=== PATIENT | male | born 1970 | race Caucasian/White ===

== ENCOUNTER 2023-07-13 01:44 | Inpatient (IN) | payer BC, MEDICARE ==
--- NOTE | 2023-07-13 02:06 | ED ---
General Adult HPI - General Chief complaint: Shortness of Breath Stated complaint: [place] Time Seen by Provider: 07/13/23 01:45 Source: patient, EMS, RN notes reviewed, old records reviewed Mode of arrival: EMS Limitations: no limitations - History of Present Illness Initial comments: 53-year-old male presenting with dyspnea. Patient was transported by pa ramedics, with chief complaint of cough and dyspnea. Patient was noted to be hypoxic at 80% on room air. He was given albuterol and Atrovent during transport with improvement in symptoms. He is a current smoker. He did report some left-sided chest discomfort which is improved at the time my evaluation. - Related Data Allergies Allergy/AdvReac Type Severity Reaction Status Date / Time No Known Allergies Allergy Verified 07/13/23 01:46 Review of Systems ROS Statement: Those systems with pertinent positive or pertinent negative responses have been documented in the HPI. ROS Other: All systems not noted in ROS Statement are negative. Past Medical History Past Medical History: COPD History of Any Multi-Drug Resistant Organisms: None Reported Past Surgical History: Heart Catheterization With Stent, Joint Replacement Additional Past Surgical History / Comment(s): bilateral hips Past Psychological History: Anxiety, Bipolar, Depression, PTSD Smoking Status: Current every day smoker Past Alcohol Use History: None Reported Past Drug Use History: None Reported General Exam Limitations: no limitations General appearance: alert, in distress Head exam: Present: atraumatic, normocephalic Eye exam: Present: normal appearance, PERRL Respiratory exam: Present: respiratory distress, wheezes, accessory muscle use, decreased breath sounds, prolonged expiratory Cardiovascular Exam: Present: regular rate, normal rhythm GI/Abdominal exam: Present: soft. Absent: distended, tenderness, guarding Extremities exam: Present: normal inspection, normal capillary refill. Absent: calf tenderness Neurological exam: Present: alert, oriented X3 Psychiatric exam: Present: normal affect, normal mood Skin exam: Present: warm, dry, intact Course Vital Signs 07/13/23 07/13/23 07/13/23 01:47 01:55 02:14 Temperature 98.2 F Pulse Rate 75 84 74 Respiratory 20 20 Rate Blood Pressure 134/89 126/88 O2 Sat by Pulse 98 98 Oximetry Fraction of 50 Inspired Oxygen (FIO2) 07/13/23 07/13/23 07/13/23 02:17 02:35 03:32 Temperature Pulse Rate 76 65 Respiratory 12 16 Rate Blood Pressure 126/68 O2 Sat by Pulse 98 Oximetry Fraction of Inspired Oxygen (FIO2) Medical Decision Making - Medical Decision Making Was pt. sent in by a medical professional or institution (KENNY Mendez, TOBACCO PACKING MACHINE OPERATOR, urgent care, hospital, or retirement...) When possible be specific @ -No Did you speak to anyone other than the patient for history (EMS, parent, family, police, friend...)? What history was obtained from this source @ -No Did you review nursing and triage notes (agree or disagree)? Why? @ -I reviewed and agree with nursing and triage notes Were old charts reviewed (outside hosp., previous admission, EMS record, old EKG, old radiological studies, urgent care reports/EKG's, retirement records)? Report findings @ -No old charts were reviewed Differential Dyspnea: Coronary syndrome, arrhythmia, tamponade, asthma, COPD, pulmonary embolism, pneumonia, pneumothorax, pulmonary effusion, anaphylaxis, diabetic ketoacidosis, flailed chest, pulmonary contusion, diaphragmatic rupture, anemia, neuromuscular, this is not meant to be an all-inclusive list. EKG interpreted by me (3pts min.). @Sinus rhythm rate of 80, MT interval 164, QRS duration 90, QTc [address] segment elevation. X-rays interpreted by me (1pt min.). @ -Chest x-ray negative for pneumothorax or focal pneumonia, no acute findings] CT interpreted by me (1pt min.). @ -None done U/S interpreted by me (1pt. min.). @ -None done What testing was considered but not performed or refused? (CT, X-rays, U/S, labs)? Why? @ -None What meds were considered but not given or refused? Why? @ -None Did you discuss the management of the patient with other professionals (professionals i.e. KENNY Mendez, TOBACCO PACKING MACHINE OPERATOR, lab, RT, psych nurse, social worker aide, private advisor, teacher, airplane first officer, business case analyst)? Give summary @ -No Was smoking cessation discussed for >3mins.? @ -No Was critical care preformed (if so, how long)? @ -Yes, 35 minutes Were there social determinants of health that impacted care today? How? (Homelessness, low income, unemployed, alcoholism, drug addiction, transportation, low edu. Level, literacy, decrease access to med. care, intermediate, rehab)? @ -No Was there de-escalation of care discussed even if they declined (Discuss DNR or withdrawal of care, Hospice)? DNR status @ -No What co-morbidities impacted this encounter? (DM, HTN, Smoking, COPD, CAD, Cancer, CVA, ARF, Chemo, Hep., AIDS, mental health diagnosis, sleep apnea, morbid obesity)? @COPD Was patient admitted / discharged? Hospital course, mention meds given and route, prescriptions, significant lab abnormalities, going to OR and other pertinent info. @ -[53-year-old male with history of COPD presenting with increased cough and dyspnea. Patient is hypoxic requiring BiPAP for respiratory support. Given albuterol, Atrovent, steroids, started on IV antibiotics for COPD exacerbation. Laboratory testing reveals leukocytosis but is otherwise unremarkable. Case is discussed with Dr. Brown who will admit. Pulmonology placed on consult. Undiagnosed new problem with uncertain prognosis? @ -No Drug Therapy requiring intensive monitoring for toxicity (Heparin, Nitro, Insulin, Cardizem)? @ -No Were any procedures done? @ -No Diagnosis/symptom? @ -[COPD exacerbation, respiratory failure Acute, or Chronic, or Acute on Chronic? @ -Acute Uncomplicated (without systemic symptoms) or Complicated (systemic symptoms)? @ -Default Side effects of treatment? @ -No Exacerbation, Progression, or Severe Exacerbation? @ -No Poses a threat to life or bodily function? How? (Chest pain, USA, PA, pneumonia, PE, COPD, DKA, ARF, appy, cholecystitis, CVA, Diverticulitis, Homicidal, Suicidal, threat to staff... and all critical care pts) @ -[Yes, respiratory failure - Lab Data Result diagrams: 07/13/23 01:54 07/13/23 01:54 Lab Results 07/13/23 07/13/23 07/13/23 Range/Units 01:54 01:54 01:54 WBC 14.5 H (3.8-10.6) k/uL RBC 4.15 L (4.30-5.90) m/uL Hgb 13.2 (13.0-17.5) gm/dL Hct 42.4 (39.0-53.0) % MCV 102.3 H (80.0-100.0) fL MCH 31.9 (25.0-35.0) pg MCHC 31.2 (31.0-37.0) g/dL RDW 14.2 (11.5-15.5) % Plt Count 247 (150-450) k/uL MPV 7.7 Neutrophils % 81 % Lymphocytes % 11 % Monocytes % 5 % Eosinophils % 2 % Basophils % 0 % Neutrophils # 11.7 H (1.3-7.7) k/uL Lymphocytes # 1.6 (1.0-4.8) k/uL Monocytes # 0.7 (0-1.0) k/uL Eosinophils # 0.3 (0-0.7) k/uL Basophils # 0.1 (0-0.2) k/uL Macrocytosis Slight PT 10.8 (10.0-12.5) sec INR 1.0 (<1.2) APTT 23.6 (22.0-30.0) sec Sodium 138 (137-145) mmol/L Potassium 4.0 (3.5-5.1) mmol/L Chloride 99 (98-107) mmol/L Carbon Dioxide 36 H (22-30) mmol/L Anion Gap 3 mmol/L BUN 20 (9-20) mg/dL Creatinine 0.90 (0.66-1.25) mg/dL Est GFR (CKD-EPI)AfAm >90 (>60 ml/min/1.73 sqM) Est GFR (CKD-EPI)NonAf >90 (>60 ml/min/1.73 sqM) Glucose 124 H (74-99) mg/dL Plasma Lactic Acid Addy (0.7-2.0) mmol/L Calcium 8.8 (8.4-10.2) mg/dL Total Bilirubin 0.5 (0.2-1.3) mg/dL AST 21 (17-59) U/L ALT 16 (4-49) U/L Alkaline Phosphatase 60 (38-126) U/L Troponin I (0.000-0.034) ng/mL NT-Pro-B Natriuret Pep 363 pg/mL Total Protein 6.3 (6.3-8.2) g/dL Albumin 3.9 (3.5-5.0) g/dL 07/13/23 07/13/23 Range/Units 01:54 01:54 WBC (3.8-10.6) k/uL RBC (4.30-5.90) m/uL Hgb (13.0-17.5) gm/dL Hct (39.0-53.0) % MCV (80.0-100.0) fL MCH (25.0-35.0) pg MCHC (31.0-37.0) g/dL RDW (11.5-15.5) % Plt Count (150-450) k/uL MPV Neutrophils % % Lymphocytes % % Monocytes % % Eosinophils % % Basophils % % Neutrophils # (1.3-7.7) k/uL Lymphocytes # (1.0-4.8) k/uL Monocytes # (0-1.0) k/uL Eosinophils # (0-0.7) k/uL Basophils # (0-0.2) k/uL Macrocytosis PT (10.0-12.5) sec INR (<1.2) APTT (22.0-30.0) sec Sodium (137-145) mmol/L Potassium (3.5-5.1) mmol/L Chloride (98-107) mmol/L Carbon Dioxide (22-30) mmol/L Anion Gap mmol/L BUN (9-20) mg/dL Creatinine (0.66-1.25) mg/dL Est GFR (CKD-EPI)AfAm (>60 ml/min/1.73 sqM) Est GFR (CKD-EPI)NonAf (>60 ml/min/1.73 sqM) Glucose (74-99) mg/dL Plasma Lactic Acid Addy 1.1 (0.7-2.0) mmol/L Calcium (8.4-10.2) mg/dL Total Bilirubin (0.2-1.3) mg/dL AST (17-59) U/L ALT (4-49) U/L Alkaline Phosphatase (38-126) U/L Troponin I <0.012 (0.000-0.034) ng/mL NT-Pro-B Natriuret Pep pg/mL Total Protein (6.3-8.2) g/dL Albumin (3.5-5.0) g/dL Critical Care Time Critical Care Time: Yes Total Critical Care Time: 35 Disposition Clinical Impression: Acute exacerbation of chronic obstructive pulmonary disease Disposition: ADMITTED IP TO THIS HOSP Condition: Serious Is patient prescribed a controlled substance at d/c from ED?: No Referrals: None,Stated [Primary Care Provider] - 1-2 days Time of Disposition: 03:42
[2023-07-13] MEDS: ALBUTEROL NEBULIZED 2.5 MG/3 ML INHALATION STA (02:13)
[2023-07-13 02:14] LABS: Basophils # (A) 0.1 k/uL (0-0.2); Basophils % (A) 0 %; Eosinophils # (A) 0.3 k/uL (0-0.7); Eosinophils % (A) 2 %; HCT 42.4 % (39.0-53.0); HGB 13.2 gm/dL (13.0-17.5); Lymphocytes # (A) 1.6 k/uL (1.0-4.8); Lymphocytes % (A) 11 %; MCH 31.9 pg (25.0-35.0); MCHC 31.2 g/dL (31.0-37.0); MCV 102.3 fL (80.0-100.0); Macrocytosis Slight; Mean Platelet Volume 7.7; Monocytes # (A) 0.7 k/uL (0-1.0); Monocytes % (A) 5 %; Neutrophils # (A) 11.7 k/uL (1.3-7.7); Neutrophils % (A) 81 %; Platelet Count 247 k/uL (150-450); RBC 4.15 m/uL (4.30-5.90); RDW 14.2 % (11.5-15.5); WBC 14.5 k/uL (3.8-10.6)
[2023-07-13] MEDS: IPRATROPIUM 0.5 MG/2.5 ML NEBU INHALATION STA (02:14)
[2023-07-13] MEDS: methylPREDNISolone SOD SUCCI 125 MG/2 ML VIAL IV STA (02:20)
[2023-07-13 02:26] LABS: Partial Thromboplastin Time 23.6 sec (22.0-30.0); Prothrombin Time 10.8 sec (10.0-12.5)
[2023-07-13 02:27] LABS: ALT 16 U/L (4-49); AST 21 U/L (17-59); African American GFR (CKD) >90 (>60 ml/min/1.73 sqM); Albumin 3.9 g/dL (3.5-5.0); Alkaline Phosphatase 60 U/L (38-126); Anion Gap 3 mmol/L; Blood Urea Nitrogen 20 mg/dL (9-20); Calcium 8.8 mg/dL (8.4-10.2); Carbon Dioxide 36 mmol/L (22-30); Chloride 99 mmol/L (98-107); Glucose 124 mg/dL (74-99); Non-African American GFR(CKD) >90 (>60 ml/min/1.73 sqM); Sodium 138 mmol/L (137-145); Total Bilirubin 0.5 mg/dL (0.2-1.3); Total Protein 6.3 g/dL (6.3-8.2)
[2023-07-13 02:36] LABS: NT-Pro-B-Type Natriuretic Pept 363 pg/mL
[2023-07-13] MEDS ORDERED: NALOXONE 0.4 MG/ML 1 ML VIAL IVP PRN (03:40)
[2023-07-13] MEDS ORDERED: IPRATROPIUM-ALBUTEROL 3 ML NEB INHALATION PRN (03:40)
[2023-07-13] MEDS: AZITHROMYCIN 500 MG in SODIUM CHLORIDE 0.9% 250 ML IVPB STA (03:50)
--- NOTE | 2023-07-13 03:54 | P.HPIM ---
History of Present Illness H&P Date: 07/13/23 Patient is a 53-year-old male with a PMH of CAD status post CABG and multiple stents and COPD (not on inhalers), who presents to the emergency room with complaints of shortness of breath and cough. Patient notes that he was diagnosed with COPD several years ago but refused to use inhalers. He was seen by his applications specialist several weeks ago who advised him to get a pulmonary appointment. The patient has however been unable to get an appointment as they recently moved into the area. He notes that over the past 3 days he has been experiencing a cough productive of whitish clear phlegm along with shortness of breath. He does report some pleuritic left-sided chest discomfort. Denies lower extremity swelling or pain. Denies fever, chills, nausea, vomiting, abdominal pain, diarrhea. The patient was brought in via EMS and was initially noted to be 80% SpO2 on room air which improved to 95% on nonrebreather mask. EKG in the emergency room revealed sinus rhythm at 80 bpm with T wave inversion in lead V2 with no additional ST/T wave changes noted as reviewed by me. Chest x-ray as reviewed with the ED provider was unremarkable. Laboratory evaluation was remarkable for leukocytosis of 14.5, MCV 102.3, CO2 36, lactic acid 1.1, troponin less than 0.012, and proBNP 363. ED documentation reviewed and case discussed with ED provider. Review of systems: Pertinent positives and negatives as discussed in HPI, a complete review of systems was performed and all other systems are negative. Physical examination: Vital signs reviewed General: on Bipap, non toxic, no distress, appears at stated age, morbidly obese Derm: no unusual rashes/lesions, warm Head: atraumatic, normocephalic, symmetric Eyes: EOMI, no lid lag, anicteric sclera, pupils equal round reactive to light ENT: Nose and ears atraumatic Neck: No cervical lymphadenopathy, trachea midline, supple Mouth: no lip lesion, mucus membranes moist Cardiovascular: S1S2 reg, no murmur, positive dorsalis pedis pulse bilateral, no edema Lungs: Poor air entry bilaterally with expiratory and inspiratory wheezing, no accessory muscle use Abdominal: soft, nontender to palpation, no guarding Ext: muscle strength 5 out of 5 in all 4 extremities grossly, no gross muscle atrophy, no contractures, Neuro: CN II-XI grossly intact, no gross focal neuro deficits Psych: Alert, oriented, appropriate affect Assessment: Acute COPD exacerbation with acute hypoxic respiratory failure on BiPAP Macrocytosis Chronic conditions: CAD status post CABG and stents Imaging: EKG in the emergency room revealed sinus rhythm at 80 bpm with T wave inversion in lead V2 with no additional ST/T wave changes noted as reviewed by me. Chest x-ray as reviewed with the ED provider was unremarkable. Data Review: Laboratory evaluation was remarkable for leukocytosis of 14.5, MCV 102.3, CO2 36, lactic acid 1.1, troponin less than 0.012, and proBNP 363. The patient was brought in via EMS and was initially noted to be 80% SpO2 on room air which improved to 95% on nonrebreather mask. Plan: Continue with DuoNebs [id number] and as needed Continue Solu-Medrol 60 mg IV every 6 hour Check procalcitonin levels Continue azithromycin and ceftriaxone for now Follow-up blood cultures Pulmonary consulted Continue with BiPAP for now Resume home medications once reconciled Check b12 and folate levels Check ABG DVT prophylaxis: Lovenox subcu The patient is admitted with an anticipated greater than 2 midnight stay for evaluation of acute COPD exacerbation CODE STATUS: Full Code Discussed with: Patient Anticipated discharge place: Home Past Medical History Past Medical History: COPD History of Any Multi-Drug Resistant Organisms: None Reported Past Surgical History: Heart Catheterization With Stent, Joint Replacement Additional Past Surgical History / Comment(s): bilateral hips Past Psychological History: Anxiety, Bipolar, Depression, PTSD Smoking Status: Current every day smoker Past Alcohol Use History: None Reported Past Drug Use History: None Reported Medications and Allergies Allergies Allergy/AdvReac Type Severity Reaction Status Date / Time No Known Allergies Allergy Verified 07/13/23 01:46 Physical Exam Vitals: Vital Signs Temp Pulse Resp BP Pulse Ox FiO2 07/13/23 03:32 65 16 126/68 98 07/13/23 02:35 76 07/13/23 02:17 12 07/13/23 02:14 74 07/13/23 01:55 84 20 126/88 98 50 07/13/23 01:47 98.2 F 75 20 134/89 98 Intake and Output 07/12/23 07/12/23 07/13/23 14:59 22:59 06:59 Other: Weight 117.934 kg Results CBC & Chem 7: 07/13/23 01:54 07/13/23 01:54 Labs: Abnormal Lab Results - Last 24 Hours (Table) 07/13/23 07/13/23 Range/Units 01:54 01:54 WBC 14.5 H (3.8-10.6) k/uL RBC 4.15 L (4.30-5.90) m/uL MCV 102.3 H (80.0-100.0) fL Neutrophils # 11.7 H (1.3-7.7) k/uL Carbon Dioxide 36 H (22-30) mmol/L Glucose 124 H (74-99) mg/dL
--- NOTE | 2023-07-13 04:42 | XR ---
EXAM: XR Chest, 1 View CLINICAL HISTORY: [place] TECHNIQUE: Frontal view of the chest. COMPARISON: No relevant prior studies available. FINDINGS: Lungs: Unremarkable. No consolidation. Pleural space: Unremarkable. Mediastinum: Sternal wires and mediastinal clips are again noted. Bones/joints: No acute findings. IMPRESSION: No acute findings in the chest.
[2023-07-13 05:36] LABS: Allen Test Performed? Yes
[2023-07-13 05:54] LABS: ABG HCO3 37 mmol/L (21-25); ABG Oxygen Saturation 95.7 % (94-97); ABG PH 7.32 (7.35-7.45); ABG PO2 74 mmHg (83-108); ABG TCO2 39 mmol/L (19-24)
[2023-07-13 06:00] LABS: ABG PCO2 72 mmHg (35-45)
[2023-07-13] MEDS: methylPREDNISolone SOD SUCCI 125 MG/2 ML VIAL IV SCH (06:07)
[2023-07-13] MEDS: IPRATROPIUM-ALBUTEROL 3 ML NEB INHALATION SCH (08:19)
[2023-07-13] MEDS: NICOTINE 21MG/24HR PATCH TRANSDERM SCH (08:46)
[2023-07-13] MEDS: ENOXAPARIN 40 MG/0.4 ML SYRINGE SQ SCH (08:47)
[2023-07-13] MEDS: LORazepam 2 MG/ML INJ IV PRN (08:47)
--- NOTE | 2023-07-13 12:05 | P.CNPUL ---
History of Present Illness Consult date: 07/13/23 Requesting physician: Alena Brown Reason for consult: dyspnea, COPD, hypoxemia Chief complaint: Shortness of breath History of present illness: This is a 53-year-old male patient with a known history of significant coronary artery disease. He had bypass surgery at age 38 and subsequent stent pl acements. He has had bilateral hip replacements. He does have hyperlipidemia. He has ongoing tobacco dependence of 40 years. He has not been seen by theatrical scenic designer in the past. Early this morning he developed significant shortness of breath and EMS was called and he was found to be hypoxic with an O2 saturation at 80% on room air. Chest x-ray reveals no acute pulmonary process. White count 14.5. Hemoglobin 13.2. MCV 102.3. Sodium 138. Potassium 4.0. Bicarb 36. BUN 20. Creatinine 0.90. Glucose 124. Troponin negative x 1. proBNP 363. Arterial blood gases on 40% FiO2 revealed a PaO2 of 74, pCO2 of 72 and a pH of 7.32. He is seen today in consultation in the emergency department. He is currently on BiPAP 12/6 and 40% FiO2. He is feeling a bit better now than earlier this morning. He has received bronchodilators and steroids. Review of Systems REVIEW OF SYSTEMS: CONSTITUTIONAL: Denies any recent significant weight loss or weight gain. EYES: Denies change in vision. EARS, NOSE, MOUTH, THROAT: Denies headaches, denies sore throat. CARDIOVASCULAR: Denies chest pain, palpitations or syncopal episodes. RESPIRATORY: Positive for shortness of breath, cough, congestion no hemoptysis. GASTROINTESTINAL: Denies change in appetite, denies abdominal pain GENITOURINARY: Denies hematuria, denies infections. MUSKULOSKELETAL: Denies pain, denies swelling. INTEGUMENTARY: Denies rash, denies eczema. NEUROLOGICAL: Denies recent memory loss, no recent seizure activity. PSYCHIATRIC: Denies anxiety, denies depression. HEMATOLOGIC/LYMPHATIC: Denies anemia, denies enlarged lymph nodes. Past Medical History Past Medical History: COPD History of Any Multi-Drug Resistant Organisms: None Reported Past Surgical History: Heart Catheterization With Stent, Joint Replacement Additional Past Surgical History / Comment(s): bilateral hips Past Psychological History: Anxiety, Bipolar, Depression, PTSD Smoking Status: Current every day smoker Past Alcohol Use History: None Reported Past Drug Use History: None Reported Medications and Allergies Home Medications Medication Instructions Recorded Confirmed Type Atorvastatin [Lipitor] 80 mg PO HS 07/13/23 07/13/23 History HYDROcodone/APAP 10-325MG [[place] 1 tab PO QID 07/13/23 07/13/23 History 10-325] Isosorbide Mononitrate ER [Imdur] 30 mg PO DAILY 07/13/23 07/13/23 History Ranolazine [Ranexa] 500 mg PO BID 07/13/23 07/13/23 History carvediloL [Coreg] 12.5 mg PO BID 07/13/23 07/13/23 History lisinopriL [Zestril] 10 mg PO DAILY 07/13/23 07/13/23 History Allergies Allergy/AdvReac Type Severity Reaction Status Date / Time No Known Allergies Allergy Verified 07/13/23 07:32 Physical Exam Vitals: Vital Signs Temp Pulse Resp BP Pulse Ox FiO2 07/13/23 11:50 40 07/13/23 11:49 60 07/13/23 09:00 66 16 101/53 94 L 07/13/23 08:33 95 40 07/13/23 08:28 58 L 07/13/23 08:27 40 07/13/23 08:19 61 07/13/23 07:22 14 07/13/23 06:49 57 L 20 122/75 94 L 07/13/23 05:30 40 07/13/23 05:01 67 16 122/76 98 07/13/23 03:32 65 16 126/68 98 07/13/23 02:35 76 07/13/23 02:17 12 07/13/23 02:14 74 07/13/23 01:55 84 20 126/88 98 50 07/13/23 01:47 98.2 F 75 20 134/89 98 Intake and Output 07/12/23 07/13/23 07/13/23 22:59 06:59 14:59 Other: Weight 117.934 kg GENERAL EXAM: Alert, 53-year-old male patient, on BiPAP /6 and 40% FiO2, fairly comfortable in no apparent distress. HEAD: Normocephalic. EYES: Normal reaction of pupils, equal size. NOSE: Clear with pink turbinates. THROAT: No erythema or exudates. NECK: No masses, no JVD. CHEST: No chest wall deformity. LUNGS: Equal air entry with bilateral end expiratory wheeze. Diminished throughout CVS: S1 and S2 normal with no audible murmur, regular rhythm. ABDOMEN: No hepatosplenomegaly, normal bowel sounds, no guarding or rigidity. SPINE: No scoliosis or deformity SKIN: No rashes CENTRAL NERVOUS SYSTEM: No focal deficits, tone is normal in all 4 extremities. EXTREMITIES: There is no peripheral edema. No clubbing, no cyanosis. Peripheral pulses are intact. Results - Laboratory Findings CBC and BMP: 07/13/23 01:54 07/13/23 01:54 ABG ABG pH 7.32 (7.35-7.45) L 07/13/23 05:50 ABG pCO2 72 mmHg (35-45) H* 07/13/23 05:50 ABG pO2 74 mmHg (83-108) L 07/13/23 05:50 ABG O2 Saturation 95.7 % (94-97) 07/13/23 05:50 PT/INR, D-dimer PT 10.8 sec (10.0-12.5) 07/13/23 01:54 INR 1.0 (<1.2) 07/13/23 01:54 Abnormal lab findings: Abnormal Labs 07/13/23 07/13/23 07/13/23 01:54 01:54 05:50 WBC 14.5 H RBC 4.15 L MCV 102.3 H Neutrophils # 11.7 H ABG pH 7.32 L ABG pCO2 72 H* ABG pO2 74 L ABG HCO3 37 H ABG Total CO2 39 H Carbon Dioxide 36 H Glucose 124 H - Diagnostic Findings Chest x-ray: image reviewed (No acute pulmonary process) Assessment and Plan Assessment: Acute hypoxic respiratory failure secondary to suspected acute exacerbation of chronic obstructive pulmonary disease Chronic and ongoing tobacco dependence of 40 years Coronary artery disease with previous coronary artery bypass grafting at age 38 and subsequent stenting approximately 6 years ago Hyperlipidemia History of bilateral hip replacements Plan: The patient was seen and evaluated Chest x-ray, labs and medications reviewed Continue DuoNeb ventilations Add Pulmicort and Perforomist inhalations Continue Solu-Medrol 60 mg IV every 6 hours Titrate the FiO2 as tolerated Check a procalcitonin Continue antibiotics for now Educated regarding the importance of complete smoking cessation NicoDerm patch will be offered We will plan for outpatient pulmonary function testing once the patient has recovered We will continue to follow and make further recommendations based on his clinical status I have personally seen and examined the patient, performed the documentation and the assessment and plan as written. Number of minutes spent on the visit: 20.
[2023-07-13] MEDS: carvediloL 12.5 MG TAB PO SCH (17:09)
[2023-07-13] MEDS: FORMOTEROL FUMARATE 20 MCG/2 ML NEBU INHALATION SCH (20:06)
[2023-07-13] MEDS: BUDESONIDE 1 MG/2 ML NEBU INHALATION SCH (20:07)
[2023-07-13] MEDS: RANOLAZINE 500 MG TAB.ER.12H PO SCH (20:49)
[2023-07-13] MEDS: ATORVASTATIN 80 MG TAB PO SCH (20:49)
[2023-07-13 21:32] LABS: Glucose,Whole Blood 211 mg/dL (70-110)
[2023-07-13] MEDS: LORazepam 1 MG/0.5 ML VIAL IV PRN (23:13)
[2023-07-13] MEDS: HYDROcodone/APAP 10-325MG 1 EACH TAB PO SCH (23:45)
[2023-07-14 06:03] LABS: Glucose,Whole Blood 186 mg/dL (70-110)
[2023-07-14] MEDS: INSULIN ASPART (NovoLOG) 100 UNIT/ML VIAL SQ SCH (06:26)
[2023-07-14] MEDS: AZITHROMYCIN 500 MG in SODIUM CHLORIDE 0.9% 250 ML IVPB SCH (10:33)
[2023-07-14 10:34] LABS: Basophils % (A) 0 %; Eosinophils % (A) 0 %; HGB 13.2 gm/dL (13.0-17.5); Hypochromasia Slight; Lymphocytes # (A) 0.6 k/uL (1.0-4.8); Lymphocytes % (A) 4 %; MCH 31.6 pg (25.0-35.0); MCHC 30.6 g/dL (31.0-37.0); MCV 103.1 fL (80.0-100.0); Macrocytosis Slight; Mean Platelet Volume 7.7; Monocytes # (A) 0.5 k/uL (0-1.0); Monocytes % (A) 3 %; Neutrophils # (A) 14.6 k/uL (1.3-7.7); Neutrophils % (A) 93 %; Platelet Count 247 k/uL (150-450); RBC 4.17 m/uL (4.30-5.90); RDW 13.7 % (11.5-15.5); WBC 15.7 k/uL (3.8-10.6)
[2023-07-14] MEDS: ISOSORBIDE MONONITRATE ER 30 MG TAB.ER.24H PO SCH (10:35)
[2023-07-14] MEDS: lisinopriL 10 MG TAB PO SCH (10:35)
[2023-07-14 10:37] LABS: Potassium 4.1 mmol/L (3.5-5.1)
[2023-07-14 10:39] LABS: African American GFR (CKD) >90 (>60 ml/min/1.73 sqM); Anion Gap 4 mmol/L; Blood Urea Nitrogen 27 mg/dL (9-20); Calcium 8.4 mg/dL (8.4-10.2); Carbon Dioxide 36 mmol/L (22-30); Chloride 98 mmol/L (98-107); Glucose 226 mg/dL (74-99); Magnesium 2.2 mg/dL (1.6-2.3); Non-African American GFR(CKD) >90 (>60 ml/min/1.73 sqM); Sodium 138 mmol/L (137-145)
[2023-07-14 11:16] LABS: Glucose,Whole Blood 147 mg/dL (70-110)
--- NOTE | 2023-07-14 13:24 | P.PN ---
Subjective Progress Note Date: 07/14/23 Principal diagnosis: Respiratory failure. This is a 53-year-old male patient with a known history of significant coronary artery disease. He had bypass surgery at age 38 and subsequent stent placements. He has had bilateral hip replacements. He does have hyperlipidemia. He has ongoing tobacco dependence of 40 years. 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 Early this morning he developed significant shortness of breath and EMS was called and he was found to be hypoxic with an O2 saturation at 80% on room air. Chest x-ray reveals no acute pulmonary process. White count 14.5. Hemoglobin 13.2. MCV 102.3. Sodium 138. Potassium 4.0. Bicarb 36. BUN 20. Creatinine 0.90. Glucose 124. Troponin negative x 1. proBNP 363. Arterial blood gases on 40% FiO2 revealed a PaO2 of 74, pCO2 of 72 and a pH of 7.32. He is seen today in consultation in the emergency department. He is currently on BiPAP 12/6 and 40% FiO2. He is feeling a bit better now than earlier this morning. He has received bronchodilators and steroids. Progress note dated July 14, 2023. 53-year-old male seen in the emergency department yesterday, in consultation. He was admitted with a diagnosis of COPD exacerbation, as well as acute hypoxemic and hypercapnic respiratory failure. The patient has a significant tobacco history, and been smoking for at least 40 years. He also has a history of coronary disease, previous bypass surgery, bilateral hip replacements, and hyperlipidemia among other things. The patient was initially on BiPAP. Currently, the patient is on nasal cannula 5 L. The BiPAP device is in his room with settings of 12/6, and 40%. He is getting saline at 20 cc an hour. Clinically, he is doing better, and his breathing is much improved. Oratory data includes a white count 15.7, hemoglobin 13.2, hematocrit 43, and platelet count 247,000. Sodium 138, potassium 4.1, chlorides 98, CO2 36, BUN 27, creatinine 0.86. Glucose was 147. Blood cultures are currently pending are negative. Chest x-ray showed no acute abnormalities. Objective - Vital Signs Vital signs: Vital Signs Temp 97.5 F L 07/14/23 12:00 Pulse 96 07/14/23 12:00 Resp 16 07/14/23 12:00 BP 95/57 07/14/23 12:00 Pulse Ox 97 07/14/23 12:00 FiO2 40 07/13/23 11:50 Intake & Output 07/13/23 07/14/23 07/14/23 18:59 06:59 18:59 Intake Total 220 Balance 220 Weight 119.3 kg Intake: Oral 220 Other: Voiding Method Toilet Toilet # Voids 2 - Exam No acute distress, oriented 3. Currently, the patient is on 5 L of oxygen. No conversational dyspnea or use of accessory muscles. HEENT examination is grossly unremarkable. Mucous membranes are moist. No oral lesions. Neck supple. Full range of motion. No adenopathy thyromegaly or neck vein distention. Cardiovascular examination reveals regular rhythm rate. S1-S2 normal. No S3 or S4. No discernible murmur noted. Lungs reveal Fuhs bilateral expiratory rhonchi and wheezes. Breath sounds equal. No crackles. Saturations are in the mid 90s. Abdomen soft bowel sounds are heard. No masses or tenderness. Extremities are intact. No cyanosis clubbing or edema. Skin is without rash or lesion. Neurologic examination is brief but nonfocal. - Labs CBC & Chem 7: 07/14/23 09:34 07/14/23 09:34 Labs: Abnormal Lab Results - Last 24 Hours (Table) 07/13/23 07/14/23 07/14/23 Range/Units 21:31 05:46 09:34 WBC 15.7 H (3.8-10.6) k/uL RBC 4.17 L (4.30-5.90) m/uL MCV 103.1 H (80.0-100.0) fL MCHC 30.6 L (31.0-37.0) g/dL Neutrophils # 14.6 H (1.3-7.7) k/uL Lymphocytes # 0.6 L (1.0-4.8) k/uL Carbon Dioxide (22-30) mmol/L BUN (9-20) mg/dL Glucose (74-99) mg/dL POC Glucose (mg/dL) 211 H 186 H (70-110) mg/dL 07/14/23 07/14/23 Range/Units 09:34 11:14 WBC (3.8-10.6) k/uL RBC (4.30-5.90) m/uL MCV (80.0-100.0) fL MCHC (31.0-37.0) g/dL Neutrophils # (1.3-7.7) k/uL Lymphocytes # (1.0-4.8) k/uL Carbon Dioxide 36 H (22-30) mmol/L BUN 27 H (9-20) mg/dL Glucose 226 H (74-99) mg/dL POC Glucose (mg/dL) 147 H (70-110) mg/dL Microbiology - Last 24 Hours (Table) 07/13/23 02:00 Blood Culture - Preliminary Blood 07/13/23 01:45 Blood Culture - Preliminary Blood Assessment and Plan Assessment: Acute hypoxemic and hypercapnic respiratory failure, secondary to an acute exacerbation of COPD. Chronic and ongoing tobacco dependence for 40 years. CAD, with previous bypass grafting, and stenting. History of hyperlipidemia. History of bilateral hip replacements. Plan: Plan dated July 15, 2023. The patient was initially seen in the emergency department. The patient was placed on usual treatments including albuterol sulfate, ipratropium bromide, budesonide 1 mg, and formoterol, 20 mcg, twice a day. In addition, the patient was placed on Solu-Medrol, every 6 hours. The patient was initially on BiPAP. He was transition to nasal cannula. The patient is counseled about the importance of smoking cessation. Will continue to follow the patient, make recommendations along the way. He was also given a nicotine patch, given his chronic tobacco history. Time with Patient: Less than 30
--- NOTE | 2023-07-14 14:56 | P.PN ---
Subjective Progress Note Date: 07/14/23 Hospital Course: 53-year-old male with history of COPD, not on home oxygen, CAD status post CABG and multiple stents presenting with acute shortness of breath. The patient was brought in via EMS and was initially noted to be 80% SpO2 on room air which improved to 95% on nonrebreather mask. EKG in the emergency room revealed sinus rhythm at 80 bpm with T wave inversion in lead V2 with no additional ST/T wave changes noted. Chest x-ray was unremarkable. Laboratory evaluation was remarkable for leukocytosis of 14.5, MCV 102.3, CO2 36, lactic acid 1.1, troponin less than 0.012, and proBNP 363. Initially was on BiPAP, now on nasal cannula. Admitted for COPD exacerbation. Pulmonology consulted. Patient on bronchodilators and IV steroids. Initially on IV antibiotics, however clinical ly no signs of pneumonia. IV ceftriaxone discontinued. Subjective: Patient seen and examined at bedside. No acute events overnight. Claims that breathing is improved. Pertinent positives and negatives as discussed above, a complete review of systems was performed and all other systems are negative. Vitals Signs Reviewed. General: Nontoxic, no distress, appears at stated age Derm: Warm, dry Head: Atraumatic, normocephalic, symmetric Eyes: EOMI, no lid lag, anicteric sclera Mouth: No lip lesion, mucus membranes moist Cardiovascular: S1S2 reg, no murmur Lungs: Bilateral rhonchi, no accessory muscle use, supplemental oxygen Abdominal: Soft, nontender to palpation, no guarding, no appreciable organomegaly Ext: No gross muscle atrophy, no edema, no contractures Neuro: CN II-XI grossly intact, no focal neuro deficits Psych: Alert, oriented, appropriate affect Data Reviewed Today: Pertinent Labs: WBC 15.7, bicarb 36, creatinine 0.86, procalcitonin negative, blood sugars range between 147 and 211 Imaging: No new imaging Assessment and Plan: Acute COPD exacerbation Acute hypoxic respiratory failure Leukocytosis, steroid-induced and reactive -IV ceftriaxone discontinued, continue IV azithromycin for anti-inflammatory effects -Continue DuoNebs every 2 hours as needed, 4 times daily scheduled, Solu-Medrol 60 IV every 6 hours, budesonide twice daily, Perforomist twice daily -Repeat CBC tomorrow -Pulmonology note reviewed, continue current therapy -Wean oxygen Hyperglycemia -Continue sliding scale insulin, monitor for hypoglycemia -A1c pending CAD status post multiple stents Hypertension Dyslipidemia -Continue atorvastatin 80 mg, carvedilol 12.5 mg twice daily, Imdur 30 mg, lisinopril 10 mg, Ranexa 500 mg twice daily DVT ppx: Lovenox Code status: Full code Anticipated discharge place: Pending clinical course Anticipated discharge time: Pending clinical course Objective - Vital Signs Vital signs: Vital Signs Temp 97.5 F L 07/14/23 12:00 Pulse 96 07/14/23 12:00 Resp 16 07/14/23 12:00 BP 95/57 07/14/23 12:00 Pulse Ox 97 07/14/23 12:00 FiO2 40 07/13/23 11:50 Intake & Output 07/13/23 07/14/23 07/14/23 18:59 06:59 18:59 Intake Total 700 Balance 700 Weight 119.3 kg Intake: Oral 700 Other: Voiding Method Toilet Toilet # Voids 2 2 # Bowel Movements 1 - Labs CBC & Chem 7: 07/14/23 09:34 07/14/23 09:34 Labs: Abnormal Lab Results - Last 24 Hours (Table) 07/13/23 07/14/23 07/14/23 Range/Units 21:31 05:46 09:34 WBC 15.7 H (3.8-10.6) k/uL RBC 4.17 L (4.30-5.90) m/uL MCV 103.1 H (80.0-100.0) fL MCHC 30.6 L (31.0-37.0) g/dL Neutrophils # 14.6 H (1.3-7.7) k/uL Lymphocytes # 0.6 L (1.0-4.8) k/uL Carbon Dioxide (22-30) mmol/L BUN (9-20) mg/dL Glucose (74-99) mg/dL POC Glucose (mg/dL) 211 H 186 H (70-110) mg/dL 07/14/23 07/14/23 Range/Units 09:34 11:14 WBC (3.8-10.6) k/uL RBC (4.30-5.90) m/uL MCV (80.0-100.0) fL MCHC (31.0-37.0) g/dL Neutrophils # (1.3-7.7) k/uL Lymphocytes # (1.0-4.8) k/uL Carbon Dioxide 36 H (22-30) mmol/L BUN 27 H (9-20) mg/dL Glucose 226 H (74-99) mg/dL POC Glucose (mg/dL) 147 H (70-110) mg/dL Microbiology - Last 24 Hours (Table) 07/13/23 02:00 Blood Culture - Preliminary Blood 07/13/23 01:45 Blood Culture - Preliminary Blood
[2023-07-14 16:43] LABS: Glucose,Whole Blood 148 mg/dL (70-110)
[2023-07-14 20:40] LABS: Glucose,Whole Blood 188 mg/dL (70-110)
[2023-07-15] MEDS: CALCIUM CARBONATE 500 MG CHEWABLE PO ONE (03:57)
[2023-07-15 05:52] LABS: Glucose,Whole Blood 185 mg/dL (70-110)
[2023-07-15 09:51] LABS: Basophils # (A) 0.01 X 10*3/uL (0.00-0.10); Basophils % (A) 0.1 %; Eosinophils # (A) 0 X 10*3/uL (0.04-0.35); Eosinophils % (A) 0 %; HCT 40.8 % (39.6-50.0); HGB 12.7 g/dL (13.0-17.0); Lymphocytes # (A) 0.72 X 10*3/uL (0.90-5.00); Lymphocytes % (A) 4.1 %; MCH 31.8 pg (27.0-32.0); MCHC 31.1 g/dL (32.0-37.0); Monocytes # (A) 0.54 X 10*3/uL (0.20-1.00); Monocytes % (A) 3.1 %; NRBC Per 100 WBC 0 X 10*3/uL (0.00-0.01); Neutrophils % (A) 91.8 %; Platelet Count 257 X 10*3/uL (140-440); RDW 13.9 % (11.5-14.5); WBC 17.63 X 10*3/uL (4.50-10.00)
[2023-07-15] MEDS: PANTOPRAZOLE 40 MG TABLET PO SCH (10:51)
[2023-07-15 12:03] LABS: Glucose,Whole Blood 120 mg/dL (70-110)
--- NOTE | 2023-07-15 13:24 | P.PN ---
Subjective Progress Note Date: 07/15/23 This is a 53-year-old male patient with a known history of significant coronary artery disease. He had bypass surgery at age 38 and subsequent stent placements. He has had bilateral hip replacements. He does have hyperlipidemia. He has ongoing tobacco dependence of 40 years. 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 Early this morning he developed significant shortness of breath and EMS was called and he was found to be hypoxic with an O2 saturation at 80% on room air. Chest x-ray reveals no acute pulmonary process. White count 14.5. Hemoglobin 13.2. MCV 102.3. Sodium 138. Potassium 4.0. Bicarb 36. BUN 20. Creatinine 0.90. Glucose 124. Troponin negative x 1. proBNP 363. Arterial blood gases on 40% FiO2 revealed a PaO2 of 74, pCO2 of 72 and a pH of 7.32. He is seen today in consultation in the emergency department. He is currently on BiPAP 12/6 and 40% FiO2. He is feeling a bit better now than earlier this morning. He has received bronchodilators and steroids. Progress note dated July 14, 2023. 53-year-old male seen in the emergency department yesterday, in consultation. He was admitted with a diagnosis of COPD exacerbation, as well as acute hypoxemic and hypercapnic respiratory failure. The patient has a significant tobacco history, and been smoking for at least 40 years. He also has a history of coronary disease, previous bypass surgery, bilateral hip replacements, and hyperlipidemia among other things. The patient was initially on BiPAP. Curr ently, the patient is on nasal cannula 5 L. The BiPAP device is in his room with settings of 12/6, and 40%. He is getting saline at 20 cc an hour. Clinically, he is doing better, and his breathing is much improved. Oratory data includes a white count 15.7, hemoglobin 13.2, hematocrit 43, and platelet count 247,000. Sodium 138, potassium 4.1, chlorides 98, CO2 36, BUN 27, creatinine 0.86. Glucose was 147. Blood cultures are currently pending are negative. Chest x-ray showed no acute abnormalities. The patient is seen today July 15, 2023 in follow-up on the selective care unit. He is sitting up in bed. Awake and alert in no acute distress. Doing quite a bit better. He is down to 3 L/min per nasal cannula. Much less short of breath. Blood cultures reveal no growth. Count 17.6. Hemoglobin 12.7. Platelets 257. Glucose 185. Hemoglobin A1c 5.8%. He is continued on DuoNeb ventilations, Pulmicort and Perforomist inhalations, Solu-Medrol. Procalcitonin was negative at 0.03. Objective - Vital Signs Vital signs: Vital Signs Temp 97.7 F 07/15/23 07:00 Pulse 61 07/15/23 12:01 Resp 17 07/15/23 07:00 BP 139/81 07/15/23 07:00 Pulse Ox 87 L 07/15/23 11:09 FiO2 40 07/13/23 11:50 Intake & Output 07/14/23 07/15/23 07/15/23 18:59 06:59 18:59 Intake Total 700 300 Balance 700 300 Intake: Oral 700 300 Other: Voiding Method Toilet Toilet # Voids 2 3 2 # Bowel Movements 1 - Exam GENERAL EXAM: Alert, pleasant 53-year-old male patient, on 3 L nasal cannula, comfortable in no apparent distress. HEAD: Normocephalic. EYES: Normal reaction of pupils, equal size. NOSE: Clear with pink turbinates. THROAT: No erythema or exudates. NECK: No masses, no JVD. CHEST: No chest wall deformity. LUNGS: Equal air entry with bilateral end expiratory wheeze, diminished. CVS: S1 and S2 normal with no audible murmur, regular rhythm. ABDOMEN: No hepatosplenomegaly, normal bowel sounds, no guarding or rigidity. SPINE: No scoliosis or deformity SKIN: No rashes CENTRAL NERVOUS SYSTEM: No focal deficits, tone is normal in all 4 extremities. EXTREMITIES: There is no peripheral edema. No clubbing, no cyanosis. Peripheral pulses are intact. - Labs CBC & Chem 7: 07/15/23 04:49 07/14/23 09:34 Labs: Abnormal Lab Results - Last 24 Hours (Table) 07/14/23 07/14/23 07/15/23 Range/Units 16:39 20:39 04:49 WBC 17.63 H (4.50-10.00) X 10*3/uL RBC 4.00 L (4.40-5.60) X 10*6/uL Hgb 12.7 L (13.0-17.0) g/dL MCV 102.0 H (80.0-97.0) FL MCHC 31.1 L (32.0-37.0) g/dL Immature Gran # 0.16 H (0.00-0.04) X 10*3/uL Neutrophils # 16.20 H (1.80-7.70) X 10*3/uL Lymphocytes # 0.72 L (0.90-5.00) X 10*3/uL Eosinophils # 0 L (0.04-0.35) X 10*3/uL POC Glucose (mg/dL) 148 H 188 H (70-110) mg/dL 07/15/23 07/15/23 Range/Units 05:51 12:02 WBC (4.50-10.00) X 10*3/uL RBC (4.40-5.60) X 10*6/uL Hgb (13.0-17.0) g/dL MCV (80.0-97.0) FL MCHC (32.0-37.0) g/dL Immature Gran # (0.00-0.04) X 10*3/uL Neutrophils # (1.80-7.70) X 10*3/uL Lymphocytes # (0.90-5.00) X 10*3/uL Eosinophils # (0.04-0.35) X 10*3/uL POC Glucose (mg/dL) 185 H 120 H (70-110) mg/dL Microbiology - Last 24 Hours (Table) 07/13/23 02:00 Blood Culture - Preliminary Blood 07/13/23 01:45 Blood Culture - Preliminary Blood Assessment and Plan Assessment: Acute hypoxic respiratory failure secondary to suspected acute exacerbation of chronic obstructive pulmonary disease Chronic and ongoing tobacco dependence of 40 years Coronary artery disease with previous coronary artery bypass grafting at age 38 and subsequent stenting approximately 6 years ago Hyperlipidemia History of bilateral hip replacements Plan: The patient was seen and evaluated Labs and medications reviewed Improved and on 3 L nasal cannula Continue bronchodilators and steroids Procalcitonin negative Antibiotics discontinued Again educated regarding smoking cessation NicoDerm patch remains in place We will continue to follow I have personally seen and examined the patient, performed the documentation and the assessment and plan as written. Number of minutes spent on the visit: 10.
--- NOTE | 2023-07-15 15:54 | P.PN ---
Subjective Progress Note Date: 07/15/23 Hospital Course: 53-year-old male with history of COPD, not on home oxygen, CAD status post CABG and multiple stents presenting with acute shortness of breath. The patient was brought in via EMS and was initially noted to be 80% SpO2 on room air which improved to 95% on nonrebreather mask. EKG in the emergency room revealed sinus rhythm at 80 bpm with T wave inversion in lead V2 with no additional ST/T wave changes noted. Chest x-ray was unremarkable. Laboratory evaluation was remarkable for leukocytosis of 14.5, MCV 102.3, CO2 36, lactic acid 1.1, troponin less than 0.012, and proBNP 363. Initially was on BiPAP, now on nasal cannula. Admitted for COPD exacerbation. Pulmonology consulted. Patient on bronchodilators and IV steroids. Initially on IV antibiotics, however clinical ly no signs of pneumonia. IV ceftriaxone discontinued. Likely discharge home tomorrow with oxygen Subjective: Patient seen and examined at bedside. No acute events overnight. Claims that breathing is improved. Pertinent positives and negatives as discussed above, a complete review of systems was performed and all other systems are negative. Vitals Signs Reviewed. General: Nontoxic, no distress, appears at stated age Derm: Warm, dry Head: Atraumatic, normocephalic, symmetric Eyes: EOMI, no lid lag, anicteric sclera Mouth: No lip lesion, mucus membranes moist Cardiovascular: S1S2 reg, no murmur Lungs: Scattered wheezing, no accessory muscle use, supplemental oxygen Abdominal: Soft, nontender to palpation, no guarding, no appreciable organomegaly Ext: No gross muscle atrophy, no edema, no contractures Neuro: CN II-XI grossly intact, no focal neuro deficits Psych: Alert, oriented, appropriate affect Data Reviewed Today: Pertinent Labs: WBC 17.63, hemoglobin 12.7, A1c 5.8, blood sugars range between 1 20-1 88 Imaging: No new imaging Assessment and Plan: Acute COPD exacerbation Acute hypoxic respiratory failure Leukocytosis, steroid-induced and reactive -IV ceftriaxone discontinued, status post IV azithromycin -Continue DuoNebs every 2 hours as needed, 4 times daily scheduled, Solu-Medrol 60 IV every 6 hours, budesonide twice daily, Perforomist twice daily -Repeat CBC tomorrow -Pulmonology note reviewed, continue current therapy -Wean oxygen Hyperglycemia -Continue sliding scale insulin, monitor for hypoglycemia -A1c 5.8 CAD status post multiple stents Hypertension Dyslipidemia -Continue atorvastatin 80 mg, carvedilol 12.5 mg twice daily, Imdur 30 mg, lisinopril 10 mg, Ranexa 500 mg twice daily DVT ppx: Lovenox Code status: Full code Anticipated discharge place: Pending clinical course Anticipated discharge time: Pending clinical course Objective - Vital Signs Vital signs: Vital Signs Temp 97.7 F 07/15/23 07:00 Pulse 61 07/15/23 12:01 Resp 17 07/15/23 14:00 BP 139/81 07/15/23 07:00 Pulse Ox 87 L 07/15/23 11:09 FiO2 40 07/13/23 11:50 Intake & Output 07/14/23 07/15/23 07/15/23 18:59 06:59 18:59 Intake Total 700 300 Balance 700 300 Intake: Oral 700 300 Other: Voiding Method Toilet Toilet # Voids 2 3 2 # Bowel Movements 1 - Labs CBC & Chem 7: 07/15/23 04:49 07/14/23 09:34 Labs: Abnormal Lab Results - Last 24 Hours (Table) 07/14/23 07/14/23 07/15/23 Range/Units 16:39 20:39 04:49 WBC 17.63 H (4.50-10.00) X 10*3/uL RBC 4.00 L (4.40-5.60) X 10*6/uL Hgb 12.7 L (13.0-17.0) g/dL MCV 102.0 H (80.0-97.0) FL MCHC 31.1 L (32.0-37.0) g/dL Immature Gran # 0.16 H (0.00-0.04) X 10*3/uL Neutrophils # 16.20 H (1.80-7.70) X 10*3/uL Lymphocytes # 0.72 L (0.90-5.00) X 10*3/uL Eosinophils # 0 L (0.04-0.35) X 10*3/uL POC Glucose (mg/dL) 148 H 188 H (70-110) mg/dL 07/15/23 07/15/23 Range/Units 05:51 12:02 WBC (4.50-10.00) X 10*3/uL RBC (4.40-5.60) X 10*6/uL Hgb (13.0-17.0) g/dL MCV (80.0-97.0) FL MCHC (32.0-37.0) g/dL Immature Gran # (0.00-0.04) X 10*3/uL Neutrophils # (1.80-7.70) X 10*3/uL Lymphocytes # (0.90-5.00) X 10*3/uL Eosinophils # (0.04-0.35) X 10*3/uL POC Glucose (mg/dL) 185 H 120 H (70-110) mg/dL Microbiology - Last 24 Hours (Table) 07/13/23 02:00 Blood Culture - Preliminary Blood 07/13/23 01:45 Blood Culture - Preliminary Blood
[2023-07-15 16:34] LABS: Glucose,Whole Blood 159 mg/dL (70-110)
[2023-07-15 20:48] LABS: Glucose,Whole Blood 234 mg/dL (70-110)
[2023-07-15] MEDS: CALCIUM CARBONATE 500 MG CHEWABLE PO PRN (23:38)
[2023-07-16 06:14] LABS: Glucose,Whole Blood 140 mg/dL (70-110)
[2023-07-16 07:20] LABS: Basophils % (A) 0 %; Eosinophils % (A) 0 %; HCT 43.4 % (39.0-53.0); HGB 13.5 gm/dL (13.0-17.5); Hypochromasia Slight; Lymphocytes # (A) 0.6 k/uL (1.0-4.8); Lymphocytes % (A) 5 %; MCH 31.8 pg (25.0-35.0); MCHC 31.1 g/dL (31.0-37.0); MCV 102.3 fL (80.0-100.0); Macrocytosis Slight; Monocytes # (A) 0.7 k/uL (0-1.0); Monocytes % (A) 5 %; Neutrophils # (A) 11.2 k/uL (1.3-7.7); Neutrophils % (A) 90 %; Platelet Count 253 k/uL (150-450); RBC 4.24 m/uL (4.30-5.90); RDW 13.9 % (11.5-15.5); WBC 12.6 k/uL (3.8-10.6)
[2023-07-16 07:31] VITALS: BP 147/86; RESP 17; TEMP 98
--- NOTE | 2023-07-16 10:33 | P.DS ---
Providers Date of admission: 07/13/23 03:41 Expected date of discharge: 07/16/23 Attending physician: Alena Brown MD Consults: 07/13/23 03:40 Consult Physician Routine Consulting Provider: Abhishek Aquino Consult Reason/Comments: COPD Do you want consulting provider notified?: Yes Primary care physician: [facility] Course: Discharge Diagnosis: Acute COPD exacerbation Acute hypoxic respiratory failure Leukocytosis, steroid-induced and reactive Hyperglycemia CAD status post multiple stents Hypertension Dyslipidemia Hospital Course: 53-year-old male with history of COPD, not on home oxygen, CAD status post CABG and multiple stents presenting with acute shortness of breath. The patient was brought in via EMS and was initially noted to be 80% SpO2 on room air which improved to 95% on nonrebreather mask. EKG in the emergency room revealed sinus rhythm at 80 bpm with T wave inversion in lead V2 with no additional ST/T wave changes noted. Chest x-ray was unremarkable. Laboratory evaluation was remarkable for leukocytosis of 14.5, MCV 102.3, CO2 36, lactic acid 1.1, troponin less than 0.012, and proBNP 363. Initially was on BiPAP, now on nasal cannula. Admitted for COPD exacerbation. Pulmonology consulted. Patient on bronchodilators and IV steroids. Initially on IV antibiotics, however clinically no signs of pneumonia. IV ceftriaxone discontinued. Patient being discharged home on bronchodilators, short course of steroids, and oxygen. Follow-up with pulmonology outpatient. Patient seen and examined at bedside. Vital signs reviewed and stable. General: Nontoxic, no distress, appears at stated age, obese Derm: Warm, dry Head: Atraumatic, normocephalic, symmetric Eyes: EOMI, no lid lag, anicteric sclera Mouth: No lip lesion, mucus membranes moist Cardiovascular: S1S2 reg, no murmur Lungs: CTA bilateral, no rhonchi, no rales, no accessory muscle use on supplemental oxygen Abdominal: Soft, nontender to palpation, no guarding, no appreciable organomegaly Ext: No gross muscle atrophy, no edema, no contractures Neuro: CN II-XI grossly intact, no focal neuro deficits Psych: Alert, oriented, appropriate affect A total of 33 minutes of time were spent preparing this complex discharge summary. Patient was discharged on 07/16/2023 at 947. Patient Condition at Discharge: Stable Plan - Discharge Summary Discharge Rx Participant: Yes New Discharge Prescriptions: New Fluticasone/Umeclidin/Vilanter [Trelegy Ellipta 100-62.5-25] 1 inhalation INHALATION DAILY #1 each Pantoprazole [Protonix] 40 mg PO AC-BRKFST #60 tab predniSONE [Deltasone] 40 mg PO DAILY #4 tab Ipratropium-Albuterol Nebulize [Duoneb 0.5 mg-3 mg/3 ml Soln] 3 ml INHALATION RT-QID PRN #30 each PRN Reason: Shortness Of Breath Or Wheezing Continue Ranolazine [Ranexa] 500 mg PO BID HYDROcodone/APAP 10-325MG [[place] 10-325] 1 tab PO QID lisinopriL [Zestril] 10 mg PO DAILY carvediloL [Coreg] 12.5 mg PO BID Isosorbide Mononitrate ER [Imdur] 30 mg PO DAILY Atorvastatin [Lipitor] 80 mg PO HS Discharge Medication List Atorvastatin [Lipitor] 80 mg PO HS 07/13/23 [History] HYDROcodone/APAP 10-325MG [[place] 10-325] 1 tab PO QID 07/13/23 [History] Isosorbide Mononitrate ER [Imdur] 30 mg PO DAILY 07/13/23 [History] Ranolazine [Ranexa] 500 mg PO BID 07/13/23 [History] carvediloL [Coreg] 12.5 mg PO BID 07/13/23 [History] lisinopriL [Zestril] 10 mg PO DAILY 07/13/23 [History] Fluticasone/Umeclidin/Vilanter [Trelegy Ellipta 100-62.5-25] 1 inhalation INHALATION DAILY #1 each 07/16/23 [Rx] Ipratropium-Albuterol Nebulize [Duoneb 0.5 mg-3 mg/3 ml Soln] 3 ml INHALATION RT-QID PRN #30 each 07/16/23 [Rx] Pantoprazole [Protonix] 40 mg PO AC-BRKFST #60 tab 07/16/23 [Rx] predniSONE [Deltasone] 40 mg PO DAILY #4 tab 07/16/23 [Rx] Follow up Appointment(s)/Referral(s): Nursing,[place] [NON-STAFF] - As Needed [facility] [NON-STAFF] - As Needed (oxygen) Sterling Siddiqui DO [Doctor of Osteopathic Medicine] - 1 Week Guanaco Mascorro DO [Primary Care Provider] - 1-2 Days Patient Instructions/Handouts: How to Stop Smoking (DC) Activity/Diet/Wound Care/Special Instructions: Please see your PCP and pulmonology. Discharge Disposition: HOME WITH HOME HEALTH SERVICES
[2023-07-16 11:55] VITALS: PULSE 74
--- NOTE | 2023-07-16 12:57 | P.PN ---
Subjective Progress Note Date: 07/16/23 This is a 53-year-old male patient with a known history of significant coronary artery disease. He had bypass surgery at age 38 and subsequent stent placements. He has had bilateral hip replacements. He does have hyperlipidemia. He has ongoing tobacco dependence of 40 years. He has not been seen by technical recruiter in the past. Early this morning he developed significant shortness of breath and EMS was called and he was found to be hypoxic with an O2 saturation at 80% on room air. Chest x-ray reveals no acute pulmonary process. White count 14.5. Hemoglobin 13.2. MCV 102.3. Sodium 138. Potassium 4.0. Bicarb 36. BUN 20. Creatinine 0.90. Glucose 124. Troponin negative x 1. proBNP 363. Arterial blood gases on 40% FiO2 revealed a PaO2 of 74, pCO2 of 72 and a pH of 7.32. He is seen today in consultation in the emergency department. He is currently on BiPAP 12/6 and 40% FiO2. He is feeling a bit better now than earlier this morning. He has received bronchodilators and steroids. Progress note dated July 14, 2023. 53-year-old male seen in the emergency department yesterday, in consultation. He was admitted with a diagnosis of COPD exacerbation, as well as acute hypoxemic and hypercapnic respiratory failure. The patient has a significant tobacco history, and been smoking for at least 40 years. He also has a history of coronary disease, previous bypass surgery, bilateral hip replacements, and hyperlipidemia among other things. The patient was initially on BiPAP. Curr ently, the patient is on nasal cannula 5 L. The BiPAP device is in his room with settings of 12/6, and 40%. He is getting saline at 20 cc an hour. Clinically, he is doing better, and his breathing is much improved. Oratory data includes a white count 15.7, hemoglobin 13.2, hematocrit 43, and platelet count 247,000. Sodium 138, potassium 4.1, chlorides 98, CO2 36, BUN 27, creatinine 0.86. Glucose was 147. Blood cultures are currently pending are negative. Chest x-ray showed no acute abnormalities. The patient is seen today July 15, 2023 in follow-up on the selective care unit. He is sitting up in bed. Awake and alert in no acute distress. Doing quite a bit better. He is down to 3 L/min per nasal cannula. Much less short of breath. Blood cultures reveal no growth. Count 17.6. Hemoglobin 12.7. Platelets 257. Glucose 185. Hemoglobin A1c 5.8%. He is continued on DuoNeb ventilations, Pulmicort and Perforomist inhalations, Solu-Medrol. Procalcitonin was negative at 0.03. The patient is seen today July 16, 2023 in follow-up on the regular medical floor. He is awake and alert in no acute distress. Breathing easier today compared to yesterday. Maintaining good O2 saturations in the 90s on 3 L/min per nasal cannula. He is continued on DuoNeb inhalations, Symbicort, Solu- Medrol. Lovenox for DVT prophylaxis. NicoDerm patch in place. Cultures revealed no growth. White count 12.6. Hemoglobin 13.5. Platelets 253. Glucose 140. Objective - Vital Signs Vital signs: Vital Signs Temp 98.0 F 07/16/23 07:30 Pulse 74 07/16/23 11:54 Resp 17 07/16/23 07:30 BP 147/86 07/16/23 07:30 Pulse Ox 94 L 07/16/23 07:30 FiO2 40 07/13/23 11:50 Intake & Output 07/15/23 07/16/23 07/16/23 18:59 06:59 18:59 Intake Total 650 Balance 650 Intake: Oral 650 Other: Voiding Method Toilet # Voids 2 2 - Exam GENERAL EXAM: Alert, 53-year-old male, on 3 L nasal cannula, in no apparent distress. HEAD: Normocephalic. EYES: Normal reaction of pupils, equal size. NOSE: Clear with pink turbinates. THROAT: No erythema or exudates. NECK: No masses, no JVD. CHEST: No chest wall deformity. LUNGS: Equal air entry with bilateral end expiratory wheeze, diminished. CVS: S1 and S2 normal with no audible murmur, regular rhythm. ABDOMEN: No hepatosplenomegaly, normal bowel sounds, no guarding or rigidity. SPINE: No scoliosis or deformity SKIN: No rashes CENTRAL NERVOUS SYSTEM: No focal deficits, tone is normal in all 4 extremities. EXTREMITIES: There is no peripheral edema. No clubbing, no cyanosis. Peripheral pulses are intact. - Labs CBC & Chem 7: 07/16/23 05:58 07/14/23 09:34 Labs: Abnormal Lab Results - Last 24 Hours (Table) 07/15/23 07/15/23 07/16/23 Range/Units 16:33 20:46 05:58 WBC 12.6 H (3.8-10.6) k/uL RBC 4.24 L (4.30-5.90) m/uL MCV 102.3 H (80.0-100.0) fL Neutrophils # 11.2 H (1.3-7.7) k/uL Lymphocytes # 0.6 L (1.0-4.8) k/uL POC Glucose (mg/dL) 159 H 234 H (70-110) mg/dL 07/16/23 Range/Units 06:12 WBC (3.8-10.6) k/uL RBC (4.30-5.90) m/uL MCV (80.0-100.0) fL Neutrophils # (1.3-7.7) k/uL Lymphocytes # (1.0-4.8) k/uL POC Glucose (mg/dL) 140 H (70-110) mg/dL Microbiology - Last 24 Hours (Table) 07/13/23 02:00 Blood Culture - Preliminary Blood 07/13/23 01:45 Blood Culture - Preliminary Blood Assessment and Plan Assessment: Acute hypoxic respiratory failure secondary to suspected acute exacerbation of chronic obstructive pulmonary disease Chronic and ongoing tobacco dependence of 40 years Coronary artery disease with previous coronary artery bypass grafting at age 38 and subsequent stenting approximately 6 years ago Hyperlipidemia History of bilateral hip replacements Plan: The patient was seen and evaluated Labs and medications reviewed Improved and on 3 L nasal cannula Evaluate for home oxygen Cleared for discharge from the pulmonary standpoint Continue Brittney Cowan, prednisone taper. Again educated regarding smoking cessation NicoDerm patch remains in place Follow-up in our office in 1 week I have personally seen and examined the patient, performed the documentation and the assessment and plan as written. Number of minutes spent on the visit: 10.
[2023-07-16] MEDS ORDERED: SYMBICORT 160-4.5 MCG INHALER INHALATION SCH (20:00)
[2023-07-17] MEDS ORDERED: predniSONE 20 MG TAB PO SCH (09:00)
== END 2023-07-16 12:49 | disposition home health service (06) | DRG 189 ==
LOC: EC 01:44 → 3SCARD 03:41 → 4SSUR 07-14 17:32
PROVIDERS: ADMIT Internal Medicine; ATTEND Internal Medicine
PROC: 5A09357 Assistance with Respiratory Ventilation, Less than 24 Consecutive Hours, Continuous Positive Airway Pressure (ICD-10-PCS; principal; 2023-07-13)
DX: J96.01 Acute respiratory failure with hypoxia (principal); J44.1 Chronic obstructive pulmonary disease with (acute) exacerbation; J96.02 Acute respiratory failure with hypercapnia; E66.01 Morbid (severe) obesity due to excess calories; Z68.37 Body mass index [BMI] 37.0-37.9, adult; F31.9 Bipolar disorder, unspecified; I10 Essential (primary) hypertension; Z28.310 Unvaccinated for COVID-19; T38.0X5A Adverse effect of glucocorticoids and synthetic analogues, initial encounter; D72.829 Elevated white blood cell count, unspecified; R73.9 Hyperglycemia, unspecified; F41.9 Anxiety disorder, unspecified; F43.10 Post-traumatic stress disorder, unspecified; D75.89 Other specified diseases of blood and blood-forming organs; E78.5 Hyperlipidemia, unspecified; I25.10 Atherosclerotic heart disease of native coronary artery without angina pectoris; F17.200 Nicotine dependence, unspecified, uncomplicated; Z71.6 Tobacco abuse counseling; Z79.891 Long term (current) use of opiate analgesic; Z79.899 Other long term (current) drug therapy; Z59.82 Transportation insecurity; Z95.1 Presence of aortocoronary bypass graft; Z95.5 Presence of coronary angioplasty implant and graft; Z96.643 Presence of artificial hip joint, bilateral
CPT/HCPCS: 36415; 36600; 71045; 80048; 80053; 82607; 82747; 82805; 83036; 83605; 83735; 83880; 84145; 84484; 85025; 85379; 85610; 85730; 87040; 93005; 94640; 94660; 94760; 96365; 96368; 96372; 96375; 96376; 99291

== ENCOUNTER 2023-08-14 18:13 | Emergency (ER) | payer BC, MEDICARE ==
--- NOTE | 2023-08-14 18:28 | ED ---
General Adult HPI - General Stated complaint: Abscess/Head Time Seen by Provider: 08/14/23 18:27 Source: patient Mode of arrival: ambulatory Limitations: no limitations - History of Present Illness Initial comments: 53-year-old male presenting with chief complaint of painful bump to the back of his head. Patient states that he has noticed a small bump to that area but today he woke up and it had doubled in size. He recently had a "boil" on the scalp nearby which has since popped. No fevers. No nausea or vomiting. No neck stiffness. No discharge from the area. - Related Data Home Medications Medication Instructions Recorded Confirmed Atorvastatin [Lipitor] 80 mg PO HS 07/13/23 07/13/23 HYDROcodone/APAP 10-325MG [[place] 1 tab PO QID 07/13/23 07/13/23 10-325] Isosorbide Mononitrate ER [Imdur] 30 mg PO DAILY 07/13/23 07/13/23 Ranolazine [Ranexa] 500 mg PO BID 07/13/23 07/13/23 carvediloL [Coreg] 12.5 mg PO BID 07/13/23 07/13/23 lisinopriL [Zestril] 10 mg PO DAILY 07/13/23 07/13/23 Previous Rx's Medication Instructions Recorded Fluticasone/Umeclidin/Vilanter 1 inhalation INHALATION DAILY #1 07/16/23 [Trelegy Ellipta 100-62.5-25] each Ipratropium-Albuterol Nebulize 3 ml INHALATION RT-QID PRN #30 each 07/16/23 [Duoneb 0.5 mg-3 mg/3 ml Soln] Nicotine 21Mg/24Hr Patch [Habitrol] 1 patch TRANSDERM DAILY #14 patch 07/16/23 Pantoprazole [Protonix] 40 mg PO AC-BRKFST #60 tab 07/16/23 predniSONE [Deltasone] 40 mg PO DAILY #4 tab 07/16/23 Cephalexin [Keflex] 500 mg PO Q6HR 7 Days #28 cap 08/14/23 Sulfamethox-Tmp 800-160Mg [Bactrim 1 tab PO Q12HR 7 Days #14 tab 08/14/23 DS 800-160 mg] Allergies Allergy/AdvReac Type Severity Reaction Status Date / Time No Known Allergies Allergy Verified 08/14/23 18:42 Review of Systems ROS Statement: Those systems with pertinent positive or pertinent negative responses have been documented in the HPI. ROS Other: All systems not noted in ROS Statement are negative. Past Medical History Past Medical History: COPD History of Any Multi-Drug Resistant Organisms: None Reported Past Surgical History: Heart Catheterization With Stent, Joint Replacement Additional Past Surgical History / Comment(s): bilateral hips Past Anesthesia/Blood Transfusion Reactions: No Reported Reaction Date of Last Stent Placement:: 2011 Smoking Status: Current some day smoker General Exam - General Exam Comments Initial Comments: Visual Physical Exam Vital signs reviewed General: Well-appearing, nontoxic, no acute distress. Head: Normocephalic, atraumatic Eyes: PERRLA, EOMI ENT: Airway patent Chest: Nonlabored breathing Skin: No visual rash, normal skin tone Neuro: Alert and oriented 3 Musculoskeletal: No gross abnormalities Limitations: no limitations General appearance: alert, in no apparent distress Head exam: Present: normocephalic, other (He does have an indurated bump to the back of the scalp, appears consistent with possible abscess) Eye exam: Present: normal appearance, EOMI Neck exam: Present: normal inspection. Absent: meningismus Respiratory exam: Absent: respiratory distress Cardiovascular Exam: Present: regular rate Neurological exam: Present: alert, oriented X3 Psychiatric exam: Present: normal affect, normal mood Skin exam: Present: warm, dry Course Vital Signs 08/14/23 08/14/23 18:39 21:29 Temperature 97.9 F 98 F Pulse Rate 66 67 Respiratory 18 19 Rate Blood Pressure 113/74 110/70 O2 Sat by Pulse 92 L 94 L Oximetry Medical Decision Making - Medical Decision Making Was pt. sent in by a medical professional or institution (, PA, TUBER HELPER, urgent care, hospital, or snf...) When possible be specific @ -No Did you speak to anyone other than the patient for history (EMS, parent, family, police, friend...)? What history was obtained from this source @ -No Did you review nursing and triage notes (agree or disagree)? Why? @ -I reviewed and agree with nursing and triage notes Were old charts reviewed (outside hosp., previous admission, EMS record, old EKG, old radiological studies, urgent care reports/EKG's, snf records)? Report findings @ -No old charts were reviewed Differential Diagnosis (chest pain, altered mental status, abdominal pain women, abdominal pain men, vaginal bleeding, weakness, fever, dyspnea, syncope, headache, dizziness, GI bleed, back pain, seizure, CVA, palpatations, mental health, musculoskeletal)? @ -Differential includes abscess, cellulitis, lymph node, allergic reaction, this is not an all-inclusive list EKG interpreted by me (3pts min.). @ -As above X-rays interpreted by me (1pt min.). @ -None done CT interpreted by me (1pt min.). @ -None done U/S interpreted by me (1pt. min.). @ -None done What testing was considered but not performed or refused? (CT, X-rays, U/S, labs)? Why? @ -None What meds were considered but not given or refused? Why? @ -None Did you discuss the management of the patient with other professionals (professionals i.e. , PA, TUBER HELPER, lab, RT, psych nurse, social service agency director, ship mate, teacher, multisensor intelligence officer, spring encaser)? Give summary @ -No Was smoking cessation discussed for >3mins.? @ -No Was critical care preformed (if so, how long)? @ -No Were there social determinants of health that impacted care today? How? (Homelessness, low income, unemployed, alcoholism, drug addiction, transportation, low edu. Level, literacy, decrease access to med. care, residential, rehab)? @ -No Was there de-escalation of care discussed even if they declined (Discuss DNR or withdrawal of care, Hospice)? DNR status @ -No What co-morbidities impacted this encounter? (DM, HTN, Smoking, COPD, CAD, Cancer, CVA, ARF, Chemo, Hep., AIDS, mental health diagnosis, sleep apnea, morbid obesity)? @ -None Was patient admitted / discharged? Hospital course, mention meds given and route, prescriptions, significant lab abnormalities, going to OR and other pertinent info. @ -53-year-old male presenting with chief complaint of painful bump to the back of the scalp. No leukocytosis or anemia. On exam this does appear consistent with a small indurated abscess. No area of fluctuance. Patient will be treated with Keflex and Bactrim. He is instructed use warm compresses daily. He will follow-up with his PCP this week. Follow-up with PCP. Report back to ER with any new or worsening symptoms. Discussed return parameters and answered all questions. Patient conveyed verbal understanding and agreed to the plan. I discussed this case in detail with my attending Dr. Estevez Undiagnosed new problem with uncertain prognosis? @ -No Drug Therapy requiring intensive monitoring for toxicity (Heparin, Nitro, Insulin, Cardizem)? @ -No Were any procedures done? @ -No Diagnosis/symptom? @ -Scalp abscess Acute, or Chronic, or Acute on Chronic? @ -Acute Uncomplicated (without systemic symptoms) or Complicated (systemic symptoms)? @ -Uncomplicated Side effects of treatment? @ -No Exacerbation, Progression, or Severe Exacerbation? @ -No Poses a threat to life or bodily function? How? (Chest pain, [place], [place], pneumonia, PE, COPD, DKA, ARF, appy, cholecystitis, CVA, Diverticulitis, Homicidal, Suicidal, threat to staff... and all critical care pts) @ -No - Lab Data Result diagrams: 08/14/23 18:52 08/14/23 18:52 Lab Results 08/14/23 08/14/23 Range/Units 18:52 18:52 WBC 8.3 (3.8-10.6) k/uL RBC 4.35 (4.30-5.90) m/uL Hgb 13.9 (13.0-17.5) gm/dL Hct 42.1 (39.0-53.0) % MCV 96.8 D (80.0-100.0) fL MCH 32.0 (25.0-35.0) pg MCHC 33.1 (31.0-37.0) g/dL RDW 12.7 (11.5-15.5) % Plt Count 219 (150-450) k/uL MPV 7.2 Neutrophils % 67 % Lymphocytes % 21 % Monocytes % 7 % Eosinophils % 3 % Basophils % 1 % Neutrophils # 5.5 (1.3-7.7) k/uL Lymphocytes # 1.8 (1.0-4.8) k/uL Monocytes # 0.6 (0-1.0) k/uL Eosinophils # 0.2 (0-0.7) k/uL Basophils # 0.0 (0-0.2) k/uL Sodium 137 (137-145) mmol/L Potassium 4.3 (3.5-5.1) mmol/L Chloride 102 (98-107) mmol/L Carbon Dioxide 29 (22-30) mmol/L Anion Gap 6 mmol/L BUN 18 (9-20) mg/dL Creatinine 0.99 (0.66-1.25) mg/dL Est GFR (CKD-EPI)AfAm >90 (>60 ml/min/1.73 sqM) Est GFR (CKD-EPI)NonAf 87 (>60 ml/min/1.73 sqM) Glucose 102 H (74-99) mg/dL Calcium 9.1 (8.4-10.2) mg/dL Disposition Clinical Impression: Abscess Disposition: HOME SELF-CARE Condition: Good Instructions (If sedation given, give patient instructions): Abscess (ED) Additional Instructions: Follow-up with your PCP. Report back to ER with any new or worsening symptoms. Apply hot compresses to the area 4-6 times daily. Take medication as prescribed. Prescriptions: Sulfamethox-Tmp 800-160Mg [Bactrim DS 800-160 mg] 1 tab PO Q12HR 7 Days #14 tab Cephalexin [Keflex] 500 mg PO Q6HR 7 Days #28 cap Is patient prescribed a controlled substance at d/c from ED?: No Referrals: Guanaco Mascorro DO [Primary Care Provider] - 1-2 days Time of Disposition: 20:06
[2023-08-14 19:06] LABS: Basophils % (A) 1 %; Eosinophils # (A) 0.2 k/uL (0-0.7); Eosinophils % (A) 3 %; HGB 13.9 gm/dL (13.0-17.5); Lymphocytes # (A) 1.8 k/uL (1.0-4.8); Lymphocytes % (A) 21 %; MCHC 33.1 g/dL (31.0-37.0); MCV 96.8 fL (80.0-100.0); Mean Platelet Volume 7.2; Monocytes # (A) 0.6 k/uL (0-1.0); Monocytes % (A) 7 %; Neutrophils # (A) 5.5 k/uL (1.3-7.7); Neutrophils % (A) 67 %; Platelet Count 219 k/uL (150-450); RBC 4.35 m/uL (4.30-5.90); RDW 12.7 % (11.5-15.5); WBC 8.3 k/uL (3.8-10.6)
[2023-08-14 19:07] LABS: HCT 42.1 % (39.0-53.0)
[2023-08-14 19:09] LABS: African American GFR (CKD) >90 (>60 ml/min/1.73 sqM); Anion Gap 6 mmol/L; Blood Urea Nitrogen 18 mg/dL (9-20); Calcium 9.1 mg/dL (8.4-10.2); Carbon Dioxide 29 mmol/L (22-30); Chloride 102 mmol/L (98-107); Glucose 102 mg/dL (74-99); Non-African American GFR(CKD) 87 (>60 ml/min/1.73 sqM); Potassium 4.3 mmol/L (3.5-5.1); Sodium 137 mmol/L (137-145)
[2023-08-14] MEDS: SULFAMETHOX-TMP 800-160MG 1 EACH TAB PO STA ×2 (21:16→21:29)
[2023-08-14] MEDS: CEPHALEXIN 500 MG CAP PO STA ×2 (21:17→21:29)
[2023-08-14] MEDS: MORPHINE SULFATE 4 MG/ML SYRINGE IM STA (21:24)
[2023-08-14 22:39] VITALS: BP 110/70; PULSE 67; RESP 19; TEMP 98
== END 2023-08-14 21:35 | disposition home or self-care (01) ==
LOC: EC 18:13
DX: L02.811 Cutaneous abscess of head [any part, except face] (principal); F17.200 Nicotine dependence, unspecified, uncomplicated
CPT/HCPCS: 36415; 80048; 85025; 99283; 96372; J2270